=== PATIENT | male | born 1980 | race Caucasian/White ===

== ENCOUNTER 2024-11-07 16:32 | Emergency (ER) | payer OTHER ==
[~2024-11-07] VITALS: Ht 172.7 cm; Wt 136.1 kg
[2024-11-07] MEDS ORDERED: IBUP800 PO (17:33)
== END 2024-11-07 17:40 | disposition home or self-care (01) ==
LOC: ER 16:32
DX: R07.89 Other chest pain (principal); Z91.040 Latex allergy status
CPT/HCPCS: 71046; 99283-25

== ENCOUNTER 2024-11-22 08:29 | Emergency (ER) | payer OTHER ==
[~2024-11-22] VITALS: Ht 177.8 cm; Wt 136.1 kg
[~2024-11-22 08:29] MED LIST: IBUP800 PO
[2024-11-22] MEDS ORDERED: IBUP800 PO (10:01)
[2024-11-22] MEDS ORDERED: Percocet 5-3251 EACH PO (10:01)
[2024-11-22] MEDS ORDERED: LIDO700A20 TOP (10:01)
== END 2024-11-22 10:32 | disposition home or self-care (01) ==
LOC: ER 08:29
DX: M94.0 Chondrocostal junction syndrome [Tietze] (principal); Z91.040 Latex allergy status; Z79.891 Long term (current) use of opiate analgesic; Z79.1 Long term (current) use of non-steroidal anti-inflammatories (NSAID)
CPT/HCPCS: 71046; 99283-25